=== PATIENT | male | born 1960 | race Caucasian/White ===

== ENCOUNTER 2018-01-28 09:11 | Emergency (ER) | payer SELFPAY ==
[2018-01-28 10:00] VITALS: BP 169/83
--- NOTE | 2018-01-28 10:39 | RAD ---
Indication: Right hand injury. 2 views of the right hand demonstrates no fracture. Deformity of the fifth carpal is noted. No evidence of radiopaque foreign body is noted. IMPRESSION: Deformity of the fifth metacarpal. No fracture is noted.
--- NOTE | 2018-01-28 11:02 | ED ---
Upper Extremity Pain - HPI Summary HPI Summary: 57 yr old male with injury to the right hand this morning. He cut his right 4/5 knuckle areas on a cinder block. He has a cut. No impairment of range of motion. - History of Current Complaint Chief Complaint: UCLaceration Stated Complaint: RIGHT HAND INJURY Time Seen by Provider: 01/28/18 10:18 - Allergies/Home Medications Allergies/Adverse Reactions: Allergies Allergy/AdvReac Type Severity Reaction Status Date / Time UNSURE OF MEDICATION Allergy Hives Uncoded 01/28/18 09:56 Home Medications: Home Medications Budesonide/Formote 160/4.5(NF) [Symbicort 160/4.5 (NF)] 2 puff INH BID 01/28/18 [History Confirmed 01/28/18] Ibuprofen TAB* [Advil TAB*] 400 mg PO Q6H PRN 01/28/18 [History Confirmed ] PMH/Surg Hx/FS Hx/Imm Hx Cardiovascular History: Reports: Hx Hypertension Respiratory History: Reports: Hx Asthma Infectious Disease History: No Infectious Disease History: Denies: Traveled Outside the [place] in Last 30 Days - Family History Known Family History: Positive: None - Social History Occupation: Employed Full-time Alcohol Use: None Substance Use Type: Reports: None Smoking Status (MU): Current Some Day Smoker Type: Cigarettes Review of Systems Constitutional: Negative Positive: Other - cut to right hand All Other Systems Reviewed And Are Negative: Yes Physical Exam Triage Information Reviewed: Yes Vital Signs On Initial Exam: Initial Vitals Temp Pulse Resp BP Pulse Ox 98.5 F 76 17 169/83 97 01/28/18 09:51 01/28/18 09:51 01/28/18 09:51 01/28/18 09:51 01/28/18 09:51 Vital Signs Reviewed: Yes Appearance: Positive: Well-Appearing, No Pain Distress Skin: Positive: Other - 3 cm superficial laceration without FB on inspection. Head/Face: Positive: Normal Head/Face Inspection Eyes: Positive: EOMI ENT: Positive: Normal ENT inspection Neck: Positive: Nontender Respiratory/Lung Sounds: Positive: Clear to Auscultation, Breath Sounds Present Cardiovascular: Positive: Pulses are Symmetrical in both Upper and Lower Extremities Musculoskeletal: Positive: Strength/ROM Intact, Other - superficial laceration over the dorsum right hand over 4/5 MP area without any involvement of the joints or tendons. Neuro vasc intact on exam. Neurological: Positive: Sensory/Motor Intact, Alert, Oriented to Person Place, Time, CN Intact II-III Psychiatric: Positive: Normal - [place] Coma Scale Best Eye Response: 4 - Spontaneous Best Motor Response: 6 - Obeys Commands Best Verbal Response: 5 - Oriented Coma Scale Total: 15 Diagnostics - Vital Signs Vital Signs Temp Pulse Resp BP Pulse Ox 01/28/18 09:51 98.5 F 76 17 169/83 97 - Laboratory Lab Statement: Any lab studies that have been ordered have been reviewed, and results considered in the medical decision making process. - Radiology hand right' Xray Interpretation: No Acute Changes Radiology Interpretation Completed By: Radiologist Course/Dx - Course Course Of Treatment: superficial lac hand. NO Fb. Wound irrigated with 700cc NS - Diagnoses Provider Diagnoses: Laceration of hand Discharge - Sign-Out/Discharge Documenting (check all that apply): Patient Departure - Discharge Plan Condition: Good Disposition: HOME Patient Education Materials: Laceration (ED), Hypertension (ED), Laceration Without Closure (ED) Referrals: No Primary Care Phys,NOPCP [Primary Care Provider] - [facility] [Outside] Additional Instructions: apply antibiotic ointment to the right hand twice a day with clean dressing. - Billing Disposition and Condition Condition: GOOD Disposition: Home
== END 2018-01-28 11:12 | disposition home or self-care (01) ==
LOC: UCCORT 09:11
DX: S61.411A Laceration without foreign body of right hand, initial encounter (principal); W45.8XXA Other foreign body or object entering through skin, initial encounter; Y93.9 Activity, unspecified; Y92.9 Unspecified place or not applicable; F17.210 Nicotine dependence, cigarettes, uncomplicated
CPT/HCPCS: 99202; G0463